=== PATIENT | male | born 1995 | race Caucasian/White ===

== ENCOUNTER 2022-10-16 23:01 | Emergency (ER) | payer BC ==
[2022-10-17 00:29] LABS: CORONAVIRUS COVID-19 NAA NEGATIVE (NEGATIVE)
[2022-10-17] MEDS ORDERED: Famotidine 20 MG Tab PO STA (02:10)
== END 2022-10-17 02:23 | disposition home or self-care (01) ==
LOC: JD.ED 23:01
DX: K21.9 Gastro-esophageal reflux disease without esophagitis (principal); Z87.891 Personal history of nicotine dependence; Z20.822 Contact with and (suspected) exposure to COVID-19
CPT/HCPCS: 0241U; 99284; A9270